=== PATIENT | female | born 1995 | race Caucasian/White ===

== ENCOUNTER 2017-07-27 07:11 | Emergency (ER) | payer BC ==
[2017-07-27 08:24] LABS: #Eosinphils 0.3 thou/uL (0.0-0.7); #Lymphocytes 3.2 thou/uL (1.20-3.40); #Monocytes 0.7 thou/uL (0.11-0.59); #Neutrophils 4.1 thou/uL (1.40-6.50); %Basophils 0.4 % (0.0-1.0); %Eosinophils 3.4 % (0.0-10.0); %Lymphocytes 38.5 % (21.0-51.0); %Monocytes 8.6 % (0.0-10.0); %Neutrophils 49.1 % (42.0-75.0); Hemoglobin 14.5 g/dL (12.0-16.0); Mean Corpuscular HGB CONC 33.7 g/dL (32.0-36.0); Mean Corpuscular Hemoglobin 30.3 pg (27.0-31.0); Mean Platelet Volume 6.3 fL (7.4-10.4); Platelet Count 336 thou/uL (130-400); RBC Distribution Width 11.9 % (11.5-14.5); Red Blood Cell (RBC) Count 4.79 mill/uL (4.20-5.40); White Blood Cell (WBC) Count 8.4 thou/uL (4.8-10.8)
[2017-07-27 08:38] LABS: BHCG - Serum Negative (NEGATIVE); Pregs Control Background? CLEAR/WHITE (CLR/WHITE); Pregs Control Bar Appear? YES (CONTROL BAR)
[2017-07-27 08:46] LABS: ALT (SGPT) 13 U/L (8-55); AST (SGOT) 15 U/L (5-34); Albumin 4.4 g/dL (3.5-5.0); Alkaline Phosphatase 82 U/L (40-150); Anion Gap 13 mmol/L (10-20); BUN (Urea Nitrogen) 15 mg/dL (7.0-18.7); Bilirubin, Total 0.4 mg/dL (0.2-1.2); Calc. Creatinine Clearance 0 mL/min (70-130); Calcium 9.5 mg/dL (7.8-10.44); Carbon Dioxide 27 mmol/L (22-29); Chloride 103 mmol/L (98-107); Estimated GFR-MDRD Greater than 90; Glucose 96 mg/dL (70-105); Potassium 3.9 mmol/L (3.5-5.1); Protein, Total 7.4 g/dL (6.0-8.3); Sodium 139 mmol/L (136-145)
--- NOTE | 2017-07-27 09:54 | CT ---
CT OF THE HEAD WITH AND WITHOUT CONTRAST: Date: 07-27-17 Comparison: None. History: Headache, dizziness, chills. Technique: Serial axial CT imaging obtained at 5 mm intervals from vertex through skull base with and without IV contrast. FINDINGS: The paranasal sinuses and mastoid air cells are well aerated. There is no displace calvarial fracture . Precontrast imaging demonstrates no intracranial hemorrhaged, midline shift of mass effect. Post co ntrast imaging demonstrates no abnormal enhancement. Post contrast imaging is not tailored to assess the arterial structures. IMPRESSION: Unremarkable CT head with and without IV contrast. POS: [facility]
[2017-07-27] MEDS ORDERED: Ketorolac Tromethamine 30 MG/ML VIAL ONE (10:53)
[2017-07-27] MEDS ORDERED: Metoclopramide HCl 10 MG/2 ML VIAL ONE (10:53)
[2017-07-27] MEDS ORDERED: ISOVUE-370 76%-LOCM 1 ML ONE (12:58)
== END 2017-07-27 12:25 | disposition home or self-care (01) ==
LOC: ERS 07:11
DX: J32.9 Chronic sinusitis, unspecified (principal); Z86.711 Personal history of pulmonary embolism; Z79.82 Long term (current) use of aspirin
CPT/HCPCS: 36415; 70470; 80053; 84703; 85025; 96365; 96375; J1885; J2765